=== PATIENT | male | born 1970 | race American Indian/Alaskan Native ===

== ENCOUNTER 2016-05-24 00:34 | Emergency (ER) | payer OTHER ==
[2016-05-24 00:46] VITALS: BP 138/94
[2016-05-24 01:18] LABS: Basophils % (Auto) 0.3 % (0.0-1.8); Eosinophils % (Auto) 0.3 % (0.0-4.3); Hematocrit 44.8 % (35.5-45.6); Hemoglobin 14.3 gm/dl (11.8-15.2); Mean Corpuscular HGB Conc 32 % (32-34); Mean Corpuscular Hemoglobin 27 pg (28-32); Mean Corpuscular Volume 84 fl (84-94); Platelet Count 217 K/mm3 (140-440); Red Cell Distribution Width 14.6 % (13.2-15.2); White Blood Count 10.7 K/mm3 (4.5-11.0)
[2016-05-24 01:35] LABS: Alanine Aminotransferase 37 units/L (7-56); Albumin 4.2 g/dL (3.9-5); Albumin/Globulin Ratio 1.2 %; Alkaline Phosphatase 71 units/L (35-129); Anion Gap 15 mmol/L; BUN/Creatinine Ratio 11.53; Bilirubin,Total 0.4 mg/dL (0.1-1.2); Blood Urea Nitrogen 15 mg/dL (9-20); Calcium 8.9 mg/dL (8.4-10.2); Carbon Dioxide 26 mmol/L (22-30); Chloride 96.8 mmol/L (98-107); Glucose 110 mg/dL (75-100); Lipase 24 units/L (13-60); Potassium 4.2 mmol/L (3.6-5.0); Sodium 134 mmol/L (137-145); Total Protein 7.6 g/dL (6.3-8.2)
[2016-05-24 06:08] LABS: Bilirubin,Urine NEG (Negative); Blood,Urine LG (Negative); Ketones,Urine NEG (Negative); Leukocyte Esterase,Urine NEG (Negative); Mucus,Urine 3+ /HPF; Nitrite,Urine NEG (Negative); Urobilinogen,Urine < 2.0 mg/dL (<2.0)
--- NOTE | 2016-05-24 20:11 | ED Elopement Review ---
ED Pt Elopement review - Results review Lab results: Laboratory Tests 05/24/16 05/24/16 05/24/16 00:55 00:55 Unknown WBC 10.7 RBC 5.30 H Hgb 14.3 Hct 44.8 MCV 84 MCH 27 L MCHC 32 RDW 14.6 Plt Count 217 Lymph % (Auto) 11.6 L [place] % (Auto) 7.7 H Eos % (Auto) 0.3 Baso % (Auto) 0.3 Lymph # 1.2 [place] # 0.8 Eos # 0.0 Baso # 0.0 Seg Neutrophils % 80.1 H Seg Neutrophils # 8.6 H Sodium 134 L Potassium 4.2 Chloride 96.8 L Carbon Dioxide 26 Anion Gap 15 BUN 15 Creatinine 1.3 Estimated GFR > 60 BUN/Creatinine Ratio 11.53 Glucose 110 H Calcium 8.9 Total Bilirubin 0.4 AST 26 ALT 37 Alkaline Phosphatase 71 Total Protein 7.6 Albumin 4.2 Albumin/Globulin Ratio 1.2 Lipase 24 Urine Color Yellow Urine Turbidity Clear Urine pH 5.0 Ur Specific [place] 1.030 Urine Protein 30 mg/dl Urine Glucose (UA) Neg Urine Ketones Neg Urine Blood Lg Urine Nitrite Neg Urine Bilirubin Neg Urine Urobilinogen < 2.0 Ur Leukocyte Esterase Neg Urine WBC (Auto) 3.0 Urine RBC (Auto) 93.0 U Epithel Cells (Auto) < 1.0 Amorphous Crystals Few Urine Mucus 3+ - Call Back decision Pt Call Back Decision: Pt to F/U with PMD
== END 2016-05-24 00:56 | disposition left against medical advice (07) ==
LOC: ED 00:34
DX: R10.9 Unspecified abdominal pain (principal); Z53.21 Procedure and treatment not carried out due to patient leaving prior to being seen by health care provider
CPT/HCPCS: 36415; 80053; 81001; 83690; 85025